=== PATIENT | female | born 1960 | race Caucasian/White ===

== ENCOUNTER 2024-09-12 03:40 | Emergency (ER) | payer OTHER ==
[2024-09-12 04:08] VITALS: BP 106/67; PULSE 62; RESP 20; TEMP 98.1; O2SAT 98
[2024-09-12] MEDS: SODIUM CHLORIDE 0.9% 1,000 ML IV ONE (04:30)
[2024-09-12] MEDS: ONDANSETRON HCL 4 MG/2 ML VIAL IVP ONE (04:30)
== END 2024-09-12 05:02 | disposition home or self-care (01) ==
LOC: EMS 03:40
DX: F10.129 Alcohol abuse with intoxication, unspecified (principal); Y90.9 Presence of alcohol in blood, level not specified
CPT/HCPCS: 99283; 96374; J2405